=== PATIENT | male | born 2000 | race Hispanic/Latino ===

== ENCOUNTER 2021-12-07 11:04 | Inpatient (IN) | payer OTHER ==
[~2021-12-07] VITALS: Ht 167.6 cm; Wt 65.9 kg
[2021-12-07 11:47] LABS: HEMATOCRIT 41.4 % (42.0-52.0); HEMOGLOBIN 14.4 g/dl (13.5-17.5); MEAN CORPUSCULAR HEMOGLOBIN 29.8 pg (27.0-33.0); MEAN CORPUSCULAR HGB CONC 34.8 g/dl (32.0-36.5); MEAN CORPUSCULAR VOLUME 85.5 fl (80.0-96.0); PLATELET COUNT, AUTOMATED 213 10^3/uL (150-450); RED BLOOD COUNT 4.84 10^6/uL (4.30-6.10); WHITE BLOOD COUNT 6.7 10^3/uL (4.0-10.0)
[2021-12-07 12:16] LABS: AMPHETAMINES LEVEL URINE NEGATIVE (NEGATIVE); BARBITURATES URINE NEGATIVE (NEGATIVE); BENZODIAZEPINES URINE NEGATIVE (NEGATIVE); CANNABINOIDS URINE NEGATIVE (NEGATIVE); COCAINE METABOLITE URINE NEGATIVE (NEGATIVE); METHADONE URINE NEGATIVE (NEGATIVE); OPIATES URINE NEGATIVE (NEGATIVE); PHENCYCLIDINE URINE NEGATIVE (NEGATIVE)
[2021-12-07 12:23] LABS: RSV AMPLIFICATION NEGATIVE (NEGATIVE)
[2021-12-07 12:31] LABS: ACETAMINOPHEN LEVEL < 2.0 UG/ML (10.0-30.0); ALBUMIN 4.4 GM/DL (3.2-5.2); ALT/SGPT 78 U/L (12-78); BILIRUBIN,DIRECT 0.1 MG/DL (0.0-0.2); BILIRUBIN,TOTAL 0.3 MG/DL (0.2-1.0); BLOOD UREA NITROGEN 17 MG/DL (7-18); CALCIUM LEVEL 9.5 MG/DL (8.5-10.1); CARBON DIOXIDE LEVEL 30 MEQ/L (21-32); CHLORIDE LEVEL 106 MEQ/L (98-107); CREATININE FOR GFR 0.99 MG/DL (0.70-1.30); ETHYL ALCOHOL (ETHANOL) < 0.003 % (0.000-0.010); GLUCOSE, FASTING 93 MG/DL (70-100); SALICYLATE LEVEL < 1.7 MG/DL (5.0-30.0); SODIUM LEVEL 140 MEQ/L (136-145)
[2021-12-07] MEDS ORDERED: CONC18TA14 PO (12:32)
[2021-12-07] MEDS ORDERED: IBUPROFEN 400MG TAB PO PRN (15:00)
[2021-12-07] MEDS ORDERED: MOM 30ML SUSPENSION UDC PO PRN (15:00)
[2021-12-07] MEDS ORDERED: MAALOX 30 ML SUSP *UDC PO PRN (15:00)
[2021-12-07] MEDS ORDERED: HOME MED LIST COMPLETE! XX SCH (15:20)
[2021-12-07 17:33] VITALS: BP 126/80
[2021-12-07] MEDS: traZODone 50 MG TAB PO PRN (21:17)
[2021-12-08 06:00] VITALS: BP 123/58
[2021-12-08] MEDS: SERTRALINE HCL 25 MG TABLET PO SCH (11:06)
[2021-12-08 18:30] VITALS: BP 140/86
[2021-12-08] MEDS: traZODone 50 MG TAB PO PRN (21:03)
[2021-12-09 06:00] VITALS: BP 116/66
[2021-12-09] MEDS ORDERED: buPROPion **XL** TABLET 150MG (WELLBUTRIN XL) PO SCH (09:00)
[2021-12-09] MEDS: SERTRALINE HCL 25 MG TABLET PO SCH (09:15)
[2021-12-09] MEDS ORDERED: TRAZ-252 PO (11:10)
[2021-12-09] MEDS ORDERED: BUPR150T12 PO (11:10)
[2021-12-09] MEDS ORDERED: SERT25TA21 PO (11:10)
== END 2021-12-09 14:10 | disposition home or self-care (01) | DRG 885 ==
LOC: M ED 11:04 → M ED INP 14:58 → M PSY 17:15
PROVIDERS: ADMIT Student in an Organized Health Care Education/Training Program; ATTEND Student in an Organized Health Care Education/Training Program
DX: F33.1 Major depressive disorder, recurrent, moderate (principal); R45.851 Suicidal ideations; F41.9 Anxiety disorder, unspecified; F43.20 Adjustment disorder, unspecified; Z56.6 Other physical and mental strain related to work; Z59.9 Problem related to housing and economic circumstances, unspecified; Z91.138 Patient's unintentional underdosing of medication regimen for other reason